=== PATIENT | male | born 1975 ===

== ENCOUNTER 2024-05-10 06:33 | Day surgery (SDC) | payer OTHER ==
[2024-05-10] MEDS ORDERED: BUPIVACAINE HCL 30 ML VIAL IJ ONE (10:15)
[2024-05-10] MEDS ORDERED: HEMOSTATIC MATRIX 1 KIT KIT TOP ONE (10:15)
[2024-05-10] MEDS ORDERED: DIBUCAINE 30 GM TUBE RECTAL ONE (10:15)
[2024-05-10] MEDS ORDERED: LIDOCAINE HCL 1%/EPINEPHRINE 20ML VIAL IJ ONE (10:15)
[2024-05-10] MEDS ORDERED: CEFTRIAXONE SODIUM 2,000 MG VIAL IV SCH (10:15)
[2024-05-10] MEDS ORDERED: POVIDONE-IODINE 118 ML BOTT TOP ONE (10:15)
[2024-05-10] MEDS ORDERED: METRONIDAZOLE/SODIUM CHLORIDE 500 MG/100 ML PIGGYBACK IV SCH (10:15)
[2024-05-10] MEDS ORDERED: NEURONTIN300 MG PO (10:21)
[2024-05-10] MEDS ORDERED: COLACE100 MG PO (10:21)
[2024-05-10] MEDS ORDERED: TRAM1TAB98 PO (10:21)
[2024-05-10] MEDS ORDERED: MORPHINE SULFATE 4 MG/ML VIAL IV ONE (13:20)
[2024-05-10] MEDS ORDERED: ONDANSETRON HCL 2 MG/ML VIAL IV ONE (13:20)
== END 2024-05-10 18:00 | disposition home or self-care (01) ==
LOC: CIR.AMB 06:33
PROVIDERS: ATTEND Surgery
DX: K60.1 Chronic anal fissure (principal); K62.89 Other specified diseases of anus and rectum